=== PATIENT | male | born 1990 | race Caucasian/White ===

== ENCOUNTER 2016-10-23 10:08 | Emergency (ER) | payer BC ==
[~2016-10-23] VITALS: Ht 172.7 cm; Wt 69.5 kg
[~2016-10-23 10:08] MED LIST: NAPR-260 PO; ONDA4TAB35 PO
[2016-10-23 10:12] VITALS: Ht 172.7 cm; Wt 69.5 kg
[2016-10-23 11:26] LABS: URINE BLOOD (Dip) POC Negative (NEGATIVE)
[2016-10-23] MEDS ORDERED: IBUP-1542 PO (11:44)
--- NOTE | 2016-10-23 11:47 | ERD ---
ER Documentation Chief Complaint Date/Time DATE: 10/23/16 TIME: 11:45 Chief Complaint PT with AP LLQ X 5 days, diarrhea X 2 and nausea yesterday. No fever HPI This 26-year-old male presents with approximately 5 day history of pain in the left lower abdomen. He had diarrhea initially for 2 days which is improved. He has some nausea prior also which is improved. There is no history of fevers , blood, urinary complaints. May have had a family member with similar symptoms. ROS All systems reviewed and are negative except as per history of present illness. Medications Home Meds Active Scripts Ibuprofen* (Motrin*) 600 Mg Tab, 600 MG PO Q6, #15 TAB Prov:THUAN COHEN MD 10/23/16 Naproxen* (Naprosyn*) 500 Mg Tablet, 500 MG PO BID, #14 TAB Prov:CANDIDO GOODWIN DO 04/24/15 Ondansetron Hcl* (Zofran* ODT) 4 mg -ODT Tab.disper, 4 MG PO Q6 Y for NAUSEA AND /OR VOMITING, #5 TAB Prov:IVANIA WOODS 11/14/14 Allergies Allergies: Coded Allergies: No Known Allergy (Unverified , 11/14/14) PMhx/Soc History of Surgery: Yes (ear, neck) Anesthesia Reaction: No Hx Neurological Disorder: No Hx Respiratory Disorders: No Hx Cardiac Disorders: No Hx Psychiatric Problems: No Hx Miscellaneous Medical Probl: No Hx Alcohol Use: Yes Hx Substance Use: No Hx Tobacco Use: Yes Smoking Status: Current every day smoker Physical Exam Vitals Vital Signs Date Time Temp Pulse Resp B/P Pulse Ox O2 Delivery O2 Flow Rate FiO2 10/23/16 10:12 97.4 77 18 126/80 97 Physical Exam Const: [] Alert, [id number]. Head: Atraumatic Eyes: Normal Conjunctiva ENT: Normal External Ears, Nose and Mouth. Neck: Full range of motion..~ No meningismus. Resp: Clear to auscultation bilaterally Cardio: Regular rate and rhythm, no murmurs Abd: Soft, non tender, non distended. Normal bowel sounds Skin: No petechiae or rashes Back: No midline or flank tenderness Ext: No cyanosis, or edema Neur: Awake and alert Psych: Normal Mood and Affect Results 24 hrs Laboratory Tests Test 10/23/16 11:31 Bedside Urine pH (LAB) 7.0 Bedside Urine Protein (LAB) Trace Bedside Urine Glucose (UA) Negative Bedside Urine Ketones (LAB) Negative Bedside Urine Blood Negative Bedside Urine Nitrite (LAB) Negative Bedside Urine Leukocyte Esterase (L Negative Procedures/MDM X-ray Abdomen 1V Interpreted by me: Free Air: [None] Bowel Gas: [Nonspecific] Soft Tissue: [Normal]. Patient had no acute findings on the KUB Urine is negative for blood, leukocytes, nitrates, glucose per Patient presents with approximately 5 day history of upper quadrant pain associated with a resolving diarrhea and nausea. I suspect he likely has a resolving viral illness. Patient has no significant tenderness on exam and is ambulatory without pain or peritoneal signs. I am recommending a few more days of observation to allow viral illness to resolve. He is advised to return for fevers, vomiting, urinary complaints, migration of pain to the right or additional new worsening symptoms. The patient was stable with no new complaints during the ER course. Clinically, there is no current evidence to suggest diverticulitis, renal etiology, meningitis, sepsis, acute abdomen, pneumonia, acute coronary syndrome, pulmonary embolism, or any other emergent condition appearing to require further evaluation or hospitalization. The patient should certainly return for any new or worsening symptoms per the aftercare instructions. They should otherwise follow-up with her primary care doctor for reevaluation this week. Departure Diagnosis: Primary Impression: Diarrhea Diarrhea type: unspecified type Qualified Code: R19.7 - Diarrhea, unspecified type Additional Impression: Abdominal pain Abdominal location: left lower quadrant Qualified Code: R10.32 - Left lower quadrant pain Condition: Stable Patient Instructions: Abdominal Pain, Self-Care for Vomiting and Diarrhea Additional Instructions: Examinations normal today. Suspect resolving viral illness. Recommend a few more days of observation. Recheck for fevers, worsening pain, vomiting, migration of pain to right side, new worsening symptoms. THUAN COHEN MD Oct 23, 2016 11:47
--- NOTE | 2016-10-23 11:54 | RADRPT ---
PROCEDURE: XR Abdomen. CLINICAL INDICATION: Abdominal pain , diarrhea TECHNIQUE: Upright and supine abdominal x-rays were obtained. COMPARISON: None. FINDINGS: The bowel gas pattern is normal. There is no evidence of obstruction. There are no air-fluid levels. There are no abnormal calcifications overlying the urinary tracts. The soft tissues are unremarkable. There is no free intraperitoneal air. The osseus structures are unremarkable. RPTAT: AA IMPRESSION: Unremarkable abdomen radiograph. .Robret Luther MD, MD Date Time Electronically viewed and signed by .Robert Luther MD, MD on 10/23/2016 11:53 .S/
== END 2016-10-23 11:53 | disposition home or self-care (01) ==
LOC: FTE 10:08
DX: R19.7 Diarrhea, unspecified (principal); F17.210 Nicotine dependence, cigarettes, uncomplicated
CPT/HCPCS: 74000; 81003; Z7502

== ENCOUNTER 2016-11-15 18:06 | Emergency (ER) | payer BC ==
[~2016-11-15] VITALS: Ht 170.2 cm; Wt 70.5 kg
[~2016-11-15 18:06] MED LIST changes: +IBUP-1542 PO
[2016-11-15 18:09] VITALS: Ht 170.2 cm; Wt 70.5 kg
[2016-11-15 19:24] LABS: URINE BLOOD (Dip) POC Negative (NEGATIVE)
--- NOTE | 2016-11-15 20:23 | RADRPT ---
PROCEDURE: Scrotal ultrasound CLINICAL INDICATION: Testicular pain. TECHNIQUE: Scrotal ultrasound was performed with sagittal and transverse views. Kessler scale and col or imaging was performed. Images were reviewed on high resolution PACS monitors. COMPARISON: None available FINDINGS: The right testicle measures 4.9 x 2.3 x 3.4 cm. There is a punctate calcification in the right testicle. There is otherwise normal size, echogenicity, and morphology of the right testicle. The right epididymis is normal in appearance. The left testicle measures 4.1 x 2.4 x 3.0 cm. There is normal size, echogenicity, and morphology of the left testicle. The left epididymis is normal in appearance.. There are small bilateral hydroceles. There is mild asymmetric hypervascularity of the left testicle and epididymis. IMPRESSION: 1. Asymmetric hypervascularity of the left testicle and left epididymis, suggestive of epididymo-or chitis. 2. Small bilateral hydroceles. RPTAT: HLBP .Maxwell Rod MD, Date Time Electronically viewed and signed by .Maxwell Rod MD, MD on 11/15/2016 20:23 .P/
[2016-11-15] MEDS ORDERED: HYDR-906 PO (20:41)
[2016-11-15] MEDS ORDERED: IBUP-1542 PO (20:41)
--- NOTE | 2016-11-15 20:54 | ERD ---
ER Documentation Chief Complaint Date/Time DATE: 11/15/16 TIME: 20:49 Chief Complaint left testicular pain x 2 weeks s/p was hit with soccer ball HPI Patient is a 26-year-old male who presents to the emergency department for concerns of left testicular pain 2 weeks. Patient states pain started after he was hit by a soccer ball in the groin region. Patient states the pain radiates down his left lower leg. Patient states the pain is episodic in nature. Patient does report occasional dysuria. Patient denies any abdominal pain, frequency, urgency or hematuria. Patient denies any bruising or swelling to the testicular region. Patient denies any fevers or chills. Patient denies any difficulty with ambulating. Patient is sexually active with his girlfriend. Patient states his girlfriend recently time that she had a yeast infection. ROS All systems reviewed and are negative except as per history of present illness. Medications Home Meds Active Scripts Hydrocodone/Acetaminophen (Kirvin 5-325 Tablet) 1 Each Tablet, 1 TAB PO Q6H Y for PAIN, #7 TAB Prov:MARICRUZ POOLE PA-C 11/15/16 Ibuprofen* (Motrin*) 600 Mg Tab, 600 MG PO Q6, #20 TAB Prov:MARICRUZ POOLE PA-C 11/15/16 Ibuprofen* (Motrin*) 600 Mg Tab, 600 MG PO Q6, #15 TAB Prov:THUAN COHEN MD 10/23/16 Naproxen* (Naprosyn*) 500 Mg Tablet, 500 MG PO BID, #14 TAB Prov:CANDIDO GOODWIN DO 04/24/15 Ondansetron Hcl* (Zofran* ODT) 4 mg -ODT Tab.disper, 4 MG PO Q6 Y for NAUSEA AND /OR VOMITING, #5 TAB Prov:IVANIA WOODS 11/14/14 Allergies Allergies: Coded Allergies: No Known Allergy (Unverified , 11/14/14) PMhx/Soc History of Surgery: Yes (ear, neck) Anesthesia Reaction: No Hx Neurological Disorder: No Hx Respiratory Disorders: No Hx Cardiac Disorders: No Hx Psychiatric Problems: No Hx Miscellaneous Medical Probl: No Hx Alcohol Use: Yes Hx Substance Use: No Hx Tobacco Use: Yes Smoking Status: Current every day smoker FmHx Family History: diabetes Physical Exam Vitals Vital Signs Date Time Temp Pulse Resp B/P Pulse Ox O2 Delivery O2 Flow Rate FiO2 11/15/16 18:09 98.3 78 18 153/85 98 Physical Exam GENERAL: Well-developed, well-nourished male. Appears in no acute distress. HEAD: Normocephalic, atraumatic. EYES: Pupils are equally reactive bilaterally. EOMs grossly intact. No conjunctival erythema. ENT: Moist mucous membranes. No uvula deviation. No kissing tonsils. NECK: Supple. No meningismus. Normal range of motion of the neck. LUNG: Clear to auscultation bilaterally. No rhonchi, wheezing, rales or coarse breath sounds. HEART: Regular rate and rhythm. No murmurs, rubs or gallops. ABDOMEN: Soft, nontender, and nondistended. Positive bowel sounds in all four quadrants. No rebound tenderness, no guarding. (-) McBurney's point tenderness. No CVA tenderness. TESTICULAR: Normal, uncircumcised penis without any lesions, masses or deformities. No penile discharge noted. Normal scrotum without any masses, tenderness, swelling or erythema. No inguinal hernias. No phimosis. No paraphimosis. Tender to palpation of the left scrotal sac. EXTREMITIES: Equal pulses bilaterally. No peripheral clubbing, cyanosis or edema. No unilateral leg swelling. NEUROLOGIC: Alert and oriented. Moving all four extremities without any difficulty. Normal speech. Steady gait. SKIN: Normal color. Warm and dry. No rashes or lesions. Results 24 hrs Laboratory Tests Test 11/15/16 19:29 Bedside Urine pH (LAB) 7.0 Bedside Urine Protein (LAB) Negative Bedside Urine Glucose (UA) Negative Bedside Urine Ketones (LAB) Trace Bedside Urine Blood Negative Bedside Urine Nitrite (LAB) Negative Bedside Urine Leukocyte Esterase (L Negative Current Medications Medications (Trade) Dose Ordered Sig/Julian Route PRN Reason Start Time Stop Time Status Last Admin Dose Admin Ceftriaxone Sodium (Rocephin) 250 mg ONCE ONCE IM 11/15/16 21:00 11/15/16 21:01 11/15/16 20:47 Lidocaine (Xylocaine 2% (Mdv) 20 ml) 20 ml ONCE ONCE INJ 11/15/16 21:00 11/15/16 21:01 11/15/16 20:46 Azithromycin (Zithromax) 1,000 mg ONCE ONCE PO 11/15/16 21:00 11/15/16 21:01 11/15/16 20:46 Procedures/MDM ED COURSE: The patient was stable throughout ED course. I kept the patient and/or family informed of laboratory and diagnostic imaging results throughout the ED course. DIAGNOSTIC IMAGING: Read by radiologist. DIAGNOSTIC IMAGING REPORT Patient: JUANITO HORTON : 1990 Age: 26 Sex: M MR #: [id number] DOS: 11/15/16 1915 Ordering MD: MARICRUZ POOLE PA-C Location: [facility] Room/Bed: PROCEDURE: Scrotal ultrasound CLINICAL INDICATION: Testicular pain. TECHNIQUE: Scrotal ultrasound was performed with sagittal and transverse views. Kessler scale and color imaging was performed. Images were reviewed on high resolution PACS monitors. COMPARISON: None available FINDINGS: The right testicle measures 4.9 x 2.3 x 3.4 cm. There is a punctate calcification in the right testicle. There is otherwise normal size, echogenicity, and morphology of the right testicle. The right epididymis is normal in appearance. The left testicle measures 4.1 x 2.4 x 3.0 cm. There is normal size, echogenicity, and morphology of the left testicle. The left epididymis is normal in appearance.. There are small bilateral hydroceles. There is mild asymmetric hypervascularity of the left testicle and epididymis. IMPRESSION: 1. Asymmetric hypervascularity of the left testicle and left epididymis, suggestive of epididymo-orchitis. 2. Small bilateral hydroceles. RPTAT: HLBP .Maxwell Rod MD, MD Date Time Electronically viewed and signed by .Maxwell Rod MD, MD on 11/15/2016 20:23 .P/ CC: MARICRUZ POOLE PA-C MEDICATIONS GIVEN: Rocephin IM, azithromycin Patient tolerated medication well with no adverse reactions. MEDICAL DECISION MAKING: This is a 26-year-old male who presents the ED for testicular pain 2 weeks. Patient states that he was hit by a soccer ball in the groin region 2 weeks ago.. Vital signs were reviewed. Patient was afebrile. Patient was not hypoxic. Urinalysis is negative for acute infection. Scrotal ultrasound did show 1. Asymmetric hypervascularity of the left testicle and left epididymis, suggestive of epididymo-orchitis. 2. Small bilateral hydroceles. I had discussion with the patient in regards to his ultrasound findings. I discussed with the patient that epididymo-orchitis may occur secondary to STD exposure. Initially patient did not have any concerns of STDs however he stated that he did wish to receive treatment at this time. Patient was given azithromycin and Rocephin IM here in the emergency department. Patient's urine was sent for gonorrhea and Chlamydia culture. Culture pending. I notify the patient that we would call him if his results are positive. Given these findings, the patient 's presentation is most consistent with testicular pain and possible STD exposure. I have a much lower clinical concern for pyelonephritis, nephrolithiasis, appendicitis, balanitis, paraphimosis, phimosis, priapism, penile contusion, incarcerated hernia or strangulated hernia. PRESCRIPTIONS: Ibuprofen, Kirvin DISCHARGE: At this time, patient is stable for discharge and outpatient management. Patient was given a copy of all imaging studies and urine studies obtained today. Patient was advised to follow-up with urologist if symptoms persist. Referral information provided.. I have instructed the patient to follow-up with his/her primary care physician in 1-2 days. I have instructed the patient to promptly return to the ER for any new or worsening symptoms including increased pain, swelling, redness, warmth or fever. The patient and/or family expressed understanding of and agreement with this plan. All questions were answered. Home care instructions were provided. Patient's blood pressure was elevated (>120/80) but appears stable without evidence of hypertensive emergency, hypertensive urgency or end-organ failure. I had discussion with the patient about the risks of hypertension. I have advised the patient to follow up with his/her primary care physician for outpatient monitoring and treatment for hypertension in 2-3 days. I have instructed the patient to return to the ER for any new or worsening symptoms including chest pain, shortness of breath, headache, blurred vision, confusion, nausea, vomiting or LOC. Departure Diagnosis: Primary Impression: Testicular pain, left Additional Impression: Exposure to STD Condition: Stable Patient Instructions: Contusion, Testicles Or Scrotum Referrals: NITO TRISTAN MD (PCP) KASSIDY MAHONEY MD, GALESH L. MD GUALTIERI,DANUTA TA,KB CURTIS,ROSA CEBALLOS MD= Additional Instructions: Call your primary care doctor TOMORROW for an appointment during the next 1-2 days.See the doctor sooner or return here if your condition worsens before your appointment time. Follow up with urologist for any worsening or new concerns. See referral information. MARICRUZ POOLE PA-C Nov 15, 2016 20:54
[2016-11-15] MEDS ORDERED: CEFTRIAXONE 250 MG INJ IM ONE (21:00)
[2016-11-15] MEDS ORDERED: AZITHROMYCIN 250 MG TAB PO ONE (21:00)
[2016-11-15] MEDS ORDERED: LIDOCAINE 2% (MDV) 20 ML INJ INJ ONE (21:00)
== END 2016-11-15 21:04 | disposition home or self-care (01) ==
LOC: FTE 18:06
DX: N50.812 Left testicular pain (principal); F17.210 Nicotine dependence, cigarettes, uncomplicated; Z20.2 Contact with and (suspected) exposure to infections with a predominantly sexual mode of transmission
CPT/HCPCS: 76870; 81003; 96372; J0696; Z7502; Z7610